=== PATIENT | female | born 1990 | race Caucasian/White ===

== ENCOUNTER 2017-02-17 06:13 | Inpatient (IN) | payer OTHER ==
[2017-02-17] MEDS ORDERED: MORPHINE IV ONE (06:41)
[2017-02-17] MEDS ORDERED: ZOFRAN IV ONE (06:42)
--- NOTE | 2017-02-17 06:46 | Emergency Department Report ---
ED Female HPI - General Stated complaint: ABD PAIN Time Seen by Provider: 02/17/17 06:40 Source: patient (parts interpreter used) - History of Present Illness Initial comments: parts interpreter used at bedside. 26-year-old female 4 para 2 presenting to the emergency department complaining of pelvic pain. Onset started roughly 2 hours prior to ED arrival. Patient states pain is looking the pelvic area, intermittent, nonradiating, no worsening or relaxing factors. Patient states 2 weeks ago she was told she was having a missed at approximately 6 weeks gestation. She was told this at her doctors office. She was scheduled to have the removal of POC tomorrow however today she started having a mental abdominal cramping. Patient endorses mild vaginal bleeding. Patient denies passage of large clots. Patient denies: Fever/chills, chest pain , diarrhea. He admits to several episodes of emesis that were nonbloody none billious MD Complaint: pelvic pain -: Sudden, hour(s) (2) Location: suprapubic Radiation: non-radiating Severity: severe Severity scale (0 -10): 10 Quality: cramping Consistency: intermittent Improves with: none Worsens with: none Associated Symptoms: vaginal bleeding, abdominal pain, nausea/vomiting. denies : fever/chills, headaches, dysuria, hematuria, shortness of breath, syncope, weakness - Related Data Allergies Allergy/AdvReac Type Severity Reaction Status Date / Time No Known Allergies Allergy Unverified 02/17/17 07:20 ED Review of Systems ROS: Stated complaint: ABD PAIN Other details as noted in HPI Constitutional: denies: chills, fever Eyes: denies: eye pain, eye discharge, vision change ENT: denies: ear pain, throat pain Respiratory: denies: cough, shortness of breath, wheezing Cardiovascular: denies: chest pain, palpitations Endocrine: no symptoms reported Gastrointestinal: abdominal pain, nausea, vomiting. denies: diarrhea, constipation, hematemesis Genitourinary: denies: urgency, dysuria, discharge Musculoskeletal: denies: back pain, joint swelling, arthralgia Skin: denies: rash, lesions Neurological: denies: headache, weakness, paresthesias Psychiatric: denies: anxiety, depression Hematological/Lymphatic: denies: easy bleeding, easy bruising ED Physical Exam - General General appearance: alert, in no apparent distress - Head Head exam: Present: atraumatic, normocephalic - Eye Eye exam: Present: normal appearance - ENT ENT exam: Present: mucous membranes moist - Neck Neck exam: Present: normal inspection - Respiratory Respiratory exam: Present: normal lung sounds bilaterally. Absent: respiratory distress - Cardiovascular Cardiovascular Exam: Present: regular rate, normal rhythm. Absent: systolic murmur, diastolic murmur, rubs, gallop - GI/Abdominal GI/Abdominal exam: Present: tenderness (+ moderate tenderness in LLQ ), rebound (+ reboound ), normal bowel sounds. Absent: distended, rigid, diminished bowel sounds, hyperactive bowel sounds, hypoactive bowel sounds, pulsatile mass, hernia - External exam: Present: normal external exam Speculum exam: Present: vaginal bleeding (moderate amount of blood in vaginal vault ) Bi-manual exam: Present: adnexal tenderness (left ). Absent: adnexal mass, uterine enlargement - Extremities Exam Extremities exam: Present: normal inspection - Back Exam Back exam: Present: normal inspection - Neurological Exam Neurological exam: Present: alert, oriented X3 - Psychiatric Psychiatric exam: Present: normal affect, normal mood - Skin Skin exam: Present: warm, dry, intact, normal color. Absent: rash ED Course Vital Signs 02/17/17 02/17/17 02/17/17 06:35 06:42 07:35 Temperature 98.8 F Pulse Rate 60 Respiratory 18 18 16 Rate Blood Pressure 100/44 Blood Pressure 100/44 [Left] O2 Sat by Pulse 100 99 Oximetry 02/17/17 08:05 Temperature Pulse Rate Respiratory 16 Rate Blood Pressure Blood Pressure [Left] O2 Sat by Pulse Oximetry - Reevaluation(s) Reevaluation #1: 02/17/17 08:54 Dr. Santos of [employer] will come to the ER to evaluate the patient. Reevaluation #2: 02/17/17 09:18 Dr Santos at pt bedside, parts interpreter used to update pt on result ED Medical Decision Making - Lab Data Result diagrams: 02/17/17 06:55 02/17/17 06:55 - Radiology Data Radiology results: report reviewed, image reviewed Final impression: 1)Abnormal left adnexal mass, not excluded for an ectopic in the giving setting with no sonographic suggestion of a normal intrauterine gestation. 2. Moderate complex or hemorrhagic pelvic free fluid. [address] Lui ROSE - Medical Decision Making 26 yo female presenting to ED with left lower quadrant likely secondary to ecoptic pregnay. Pt has been informed of + trich, she is aware that her partner has be treated. She also agrees to surgery. Dr Santos will take pt to OR. parts interpreter used to relate information - Differential Diagnosis IUP, colitis, diverticulitis Critical Care Time: Yes Critical care attestation.: If time is entered above; I have spent that time in minutes in the direct care of this critically ill patient, excluding procedure time. Critical Care Time: 35 ED Disposition Clinical Impression: Ectopic , Pelvic pain, Trichomoniasis of vagina Disposition: OP ADMIT IP TO THIS HOSP Is pt being admited?: Yes Does the pt Need Aspirin: No Condition: Stable Referrals: PRIMARY CARE, [Primary Care Provider] - 3-5 Days
[2017-02-17 06:58] LABS: Bilirubin,Urine Negative (Negative); Blood,Urine Negative (Negative); Ketones,Urine Negative (Negative); Leukocyte Esterase,Urine Trace (Negative); Nitrite,Urine Negative (Negative); Protein,Urine <15 mg/dL mg/dL (Negative); Urobilinogen,Urine 0.2 mg/dL (<2.0)
[2017-02-17 07:17] LABS: Basophils % (Auto) 0.4 % (0.0-1.8); Eosinophils % (Auto) 2.1 % (0.0-4.3); Hematocrit 32.7 % (30.3-42.9); Mean Corpuscular HGB Conc 34 % (30-34); Mean Corpuscular Hemoglobin 29 pg (28-32); Mean Corpuscular Volume 86 fl (79-97); Platelet Count 246 K/mm3 (140-440); Red Blood Count 3.79 M/mm3 (3.65-5.03); Red Cell Distribution Width 14.2 % (13.2-15.2); White Blood Count 7.7 K/mm3 (4.5-11.0)
[2017-02-17 07:27] LABS: Alanine Aminotransferase 12 units/L (7-56); Albumin/Globulin Ratio 1.4 %; Alkaline Phosphatase 79 units/L (35-129); Anion Gap 13 mmol/L; Blood Urea Nitrogen 9 mg/dL (7-17); Calcium 8.7 mg/dL (8.4-10.2); Carbon Dioxide 28 mmol/L (22-30); Glucose 103 mg/dL (65-100); Sodium 138 mmol/L (137-145); Total Protein 6.9 g/dL (6.3-8.2)
[2017-02-17] MEDS ORDERED: NACL 0.9% 1000 ML 1,000 ML IV ONE (08:48)
--- NOTE | 2017-02-17 08:50 | Ultrasound Report ---
ULTRASOUND OB LESS THAN 14 WEEKS - TRANSABDOMINAL AND TRANSVAGINAL INDICATION: History of missed at 6 weeks on 02/10/2017. Serum beta-hCG 5,227 units. COMPARISON: None similar at this institution. FINDINGS: Transabdominal and transvaginal pelvic sonography performed in this patient with LMP of 12/15/2016 and estimated menstrual age of 9 weeks and 1 day. A 8.7 x 3.8 x 4.3 cm anteverted uterus demonstrates no intrauterine gestation. Endometrial thickness 0.9 cm toward the fundus, endovaginal image 5. Moderate complex/hemorrhagic pelvic free fluid. Right ovary is 2.9 x 2 x 1.7 cm. Paraovarian fluid also seen. Left ovary is 3.3 x 1.9 x 3.2 cm with a 1.6 cm intrinsic complex area/possible corpus luteum or hemorrhagic cyst. Additionally, a slightly heterogeneous, predominantly solid-appearing 5 x 2.8 x 4 cm left adnexal mass noted above the uterine fundus, endovaginal images 26-32, though not significantly hypervascular. CONCLUSION: 1. Abnormal left adnexal mass, not excluded for an ectopic in the given setting with no sonographic suggestion of a normal intrauterine gestation. 2. Moderate complex or hemorrhagic pelvic free fluid. 3. Physiologic right ovary. Please also correlate clinically, with serial serum beta-hCG values and/or followup sonogram, as warranted. I phoned the above results to Batool Moreno in the ER, 8:35 AM, 02/17/2017. Thank you for the opportunity to participate in this patient's care.
[2017-02-17] MEDS ORDERED: ROCEPHIN IM ONE (08:57)
[2017-02-17] MEDS ORDERED: XYLOCAINE 1% MPF 5 mL INFILTRATI ONE (08:57)
[2017-02-17] MEDS ORDERED: ZITHROMAX PO ONE (08:58)
[2017-02-17] MEDS ORDERED: DIPRIVAN 10 MG/ML IV ONE (09:50)
[2017-02-17] MEDS ORDERED: DILAUDID ONE (09:51)
[2017-02-17] MEDS ORDERED: DECADRON ONE (09:51)
[2017-02-17] MEDS ORDERED: ZOFRAN ONE (09:51)
[2017-02-17] MEDS ORDERED: XYLOCAINE MPF 2% ONE (09:51)
[2017-02-17] MEDS ORDERED: ZEMURON IV ONE (09:51)
[2017-02-17] MEDS ORDERED: FLAGYL 500 MG/100 ML 500 MG/100 ML BAG IV ONE (09:53)
[2017-02-17] MEDS: FLAGYL/NS 1000 MG-200 ML 1,000 MG in VIAFLEX EMPTY CONTAINER 0 ML IV SCH ×2 (10:03→23:14)
--- NOTE | 2017-02-17 10:04 | Admit Criteria Form ---
Admission Criteria Documentation: OBSTETRIC AND GYNECOLOGIC DISEASE GRG Clinical Indications for Admission to Inpatient Care (Place 'X' for any and all applicable criteria): Hospital admission is needed for appropriate care of the patient because of 1 or more of the following (1)(2)(3): [ ]I. Hemodynamic instability, as indicated by 1 or more of the following (1)( 2)(3)(4)(5): [ ]a) Vital signs or other findings not as expected for chronic patient condition or baseline [ ]b) Instability indicated by 1 or more of the following: [ ]i) Hypotension [ ]ii) Symptomatic tachycardia unresponsive to treatment (eg, analgesia, fluids, sedation as indicated) [ ]iii) Inadequate perfusion indicated by 1 or more of the following: [ ]A. Lactic acidosis (greater than 2 mmol/ L) [ ]B. New abnormal capillary refill ( greater than 3 seconds) [ ]C. Reduced urine output [ ]D. New altered mental status [ ]iv) Orthostatic vital sign changes unresponsive to treatment (eg, fluids) [ ]v) Multiple IV fluid boluses required to maintain adequate blood pressure or perfusion [ ]vi) IV inotropic or vasopressor medication required to maintain adequate blood pressure or perfusion [ ]II. Obstetric infection requiring hospitalization indicated by 1 or more of the following(13)(14): [ ]a) Chorioamnionitis [ ]b) Endometritis (except mild endometritis) [ ]c) Pelvic abscess [ ]d) Peritonitis [ ]e) Septic pelvic thrombophlebitis [ ]III. Amniotic fluid or pulmonary embolism(4)(5)(6) [X ]IV. Suspected peritonitis or ectopic requiring monitoring beyond scope of 24 hours or observation care(7)(8) [ ]V. compromise requiring hospitalization indicated by ALL of the following(9)(10): [ ]a) compromise indicated by 1 or more of the following(11): [ ]i) Abnormal heart rate monitoring [ ]ii) Abnormal contraction stress test [ ]iii) Abnormal biophysical profile [ ]iv) Abnormal Doppler flow in vessels (ie, Doppler velocimetry) (12) [ ]b) Persistence of compromise indicators during evaluation and observation monitoring [ ]. Ovarian hyperstimulation syndrome requiring hospitalization[A] indicated by ALL of the following(15): [ ]a) Recent ovarian stimulation with gonadotropins, or evidence on ultrasound of spontaneous emergence of large number of ovarian follicles [ ]b) Evidence of severe ovarian hyperstimulation syndrome indicated by 1 or more of the following: [ ]i) Abdominal pain unresponsive to oral therapy [ ]ii) Acute respiratory distress syndrome [ ]iii) Electrolyte imbalance ( eg, hyponatremia, hyperkalemia) [ ]iv) Elevated liver enzymes [ ]v) Evidence of thromboembolism [ ]vi) Hemoconcentration (hematocrit greater than 45 % (0.45)) [ ]vii) Inability to maintain oral intake adequate to prevent hemoconcentration [ ]viii) Marked hypotension from baseline (eg, SBP 20 mmHg below patients usual pressure) [ ]ix) Oliguria or anuria [ ]x) Ovarian torsion [ ]xi) Pleural or pericardial effusion on x-ray or echocardiogram [ ]xii) Rapid increase in serum creatinine to greater than 1.2 mg/dL (106 micromoles/L) or creatinine clearance less than 50 mL/min/1.73m2 (0.84 mL/ sec/1.73m2) [ ]xiii) Ruptured ovarian cyst with hemorrhage [ ]xiv) Severe abdominal pain or peritoneal signs [ ]xv) Tense ascites that cannot be managed with paracentesis in outpatient setting [ ]VII.Pelvic infection requiring hospitalization indicated by 1 or more of the following (16): [ ]a) Outpatient treatment has failed or is not appropriate (eg, inpatient monitoring required) [ ]b) Pelvic abscess [ ]c) Surgical emergency cannot be excluded (eg, rigid abdomen) [ ]d) Vomiting precluding outpatient and observation care management [ ]VIII. loss complications requiring inpatient medical treatment indicated by 1 or more of the following (4)(7)(9): [ ]a) Fever [ ]b) Peritonitis [ ]c) Sepsis []d) Severe abdominal pain [ ]IX. or patient requiring monitoring for severe heart failure, pulmonary disease, or other comorbid condition (eg, peripartum cardiomyopathy) (4)(17) [ ]X. patient with rupture of membranes requiring hospitalization indicated by ANY ONE of the following: [ ]a) Chorioamnionitis, cloudy amniotic fluid, or other evidence of infection [ ]b) compromise or other need for monitoring (11) [ ]c) Gestation longer than 23 weeks and ANY ONE of the following: [ ]i) Abnormal (noncephalic) presentation [ ]ii) Inadequate home environment (eg, home too far from hospital, unable to rapidly return to hospital) [ ]d) Temperature greater than 100.4 degrees F (38 degrees C)( oral) [ ]e) Threatened labor requiring monitoring beyond scope (eg, over 24 hours) of observation Care [ ] XI. complications, including severe lacerations, infections, or retained placenta (19) [ ] XII.Uterine bleeding with high-risk features indicated by ANY ONE of the following (4): [ ]a) Active major hemorrhage (eg, hemorrhage) [ ]b) Coagulopathy with active bleeding [ ]c) Gestational trophoblastic disease (eg, molar ) (20 ) [ ]d) (longer than 23 weeks) and ANY ONE of the following: [ ]i) Pain [ ]ii) Placental abruption, known or suspected [ ]iii) Placenta accrete, known or suspected(21) [ ]iv) Placenta previa, known or suspected [ ]v) Vasa previa [ ]e) Severe anemia [ ]XIII. Obstetric or Gynecologic Disease, condition or symptom for which ANY ONE of the following: [ ]a) Emergency and observation care have failed or are not considered appropriate ( Also use General Criteria: Observation Care Criteria as appropriate) [ ]b) Presence of a General Admission Criteria or Pediatric General Admission Criteria The original [facility] [employer] content created by [facility] has been revised. The portions of the content which have been revised are identified through the use of italic text or in bold, and [facility] has neither reviewed nor approved the modified material.All other unmodified content is copyright [facility]. Please see references footnoted in the original [facility] edition 2016 Admission Criteria Met: Yes
[2017-02-17] MEDS ORDERED: REGLAN IV NR (10:17)
[2017-02-17] MEDS ORDERED: VERSED IV NR ×2 (10:17→11:00)
[2017-02-17] MEDS ORDERED: PEPCID IV NR (10:17)
[2017-02-17] MEDS ORDERED: DILAUDID IV PRN ×2 (10:18→10:45)
[2017-02-17] MEDS ORDERED: ZOFRAN IV PRN ×3 (10:18→12:55)
--- NOTE | 2017-02-17 10:20 | Anesthesia Day of Surgery ---
Anesthesia Day of Surgery - Day of Surgery Patient Examined: Yes Patient H&P Reviewed: Yes Patient is NPO: Yes (last water @ 4AM)
--- NOTE | 2017-02-17 10:20 | Anesthesia Consultation ---
Anesthesia Consult and Med Hx Date of service: 02/17/17 - Airway Anesthetic Teeth Evaluation: Good ROM Head & Neck: Adequate Mental/Hyoid Distance: Adequate Mallampati Class: Class II Intubation Access Assessment: Probably Good - Pre-Operative Health Status ASA Pre-Surgery Classification: ASA2, Emergency Proposed Anesthetic Plan: General - Cardiovascular System Hx Hypertension: Yes
[2017-02-17] MEDS ORDERED: NACL 0.9% 1000 ML 1,000 ML IV SCH ×2 (11:00)
[2017-02-17] MEDS ORDERED: MARCAINE 0.5% INFILTRATI ONE (11:59)
[2017-02-17] MEDS ORDERED: NACL 0.9% 1000 ML 1,000 ML ONE (12:04)
[2017-02-17] MEDS ORDERED: MARCAINE 0.25% INFILTRATI ONE (12:13)
[2017-02-17] MEDS ORDERED: TORADOL IV PRN ×2 (12:55→13:20)
[2017-02-17] MEDS ORDERED: NARCAN 0.4 MG/1 ML IV PRN (13:09)
[2017-02-17] MEDS ORDERED: NORCO 5/325 PO PRN (13:09)
[2017-02-17] MEDS ORDERED: MORPHINE IV PRN (13:09)
[2017-02-17] MEDS ORDERED: PERCOCET 5/325 PO PRN (13:09)
[2017-02-17] MEDS ORDERED: REGLAN IV PRN (13:09)
[2017-02-17] MEDS ORDERED: TYLENOL PO PRN (13:09)
[2017-02-17] MEDS: DILAUDID IV PRN ×3 (13:10→23:17)
--- NOTE | 2017-02-17 13:20 | Post Anesthesia Evaluation ---
- Post Anesthesia Evaluation Patient Participated: Yes Airway Patent: Yes Stable Respiratory Function: Yes Nausea/Vomiting: No Temp > 96.8F: Yes Pain Manageable: Yes Adequeate Hydration: Yes Anesthesia Complications: No Block Receding Appropriately: Not Applicable Patient on Ventilator: No
[2017-02-17] MEDS ORDERED: LACTATED RINGERS 1,000 ML IV SCH (14:00)
[2017-02-17 14:16] LABS: Basophils % (Auto) 0.2 % (0.0-1.8); Eosinophils % (Auto) 0.1 % (0.0-4.3); Hematocrit 32.7 % (30.3-42.9); Hemoglobin 10.7 gm/dl (10.1-14.3); Mean Corpuscular HGB Conc 33 % (30-34); Mean Corpuscular Hemoglobin 29 pg (28-32); Mean Corpuscular Volume 88 fl (79-97); Platelet Count 253 K/mm3 (140-440); Red Blood Count 3.74 M/mm3 (3.65-5.03); Red Cell Distribution Width 14.5 % (13.2-15.2); White Blood Count 12.2 K/mm3 (4.5-11.0)
--- NOTE | 2017-02-17 17:12 | Operative Report ---
Operative Report Operative Report: PREOPERATIVE DIAGNOSES: 1. Pelvic pain.( left side) 2. Ectopic . POSTOPERATIVE DIAGNOSES: 1. Pelvic pain. 2. Ectopic . 3. Hemoperitoneum. PROCEDURES PERFORMED: 2. Laparoscopy. 3. Left salpingectomy. 4. Lysis of adhesions. 5. Evacuation of hemoperitoneum. ANESTHESIA: General endotracheal. ESTIMATED BLOOD LOSS: Scant from the operation, however, there was approximately 1 liters of clotted and old blood in the abdomen. SPECIMENS: Left fallopian tube COMPLICATIONS: None. FINDINGS: On bimanual exam, the patient has a small anteverted uterus, it is freely mobile. No adnexal masses, however, were appreciated on the bimanual exam. Laparoscopically, the patient had several omental adhesions to the vesicouterine peritoneum in the fundus of the uterus. There were also adhesions to the left fallopian tube and t. There was a copious amount of blood in the abdomen approximately 1 liters of clotted and unclotted blood.. There was an apparent rupture and bleeding ectopic in the isthmus portion of the left fallopian tube. PROCEDURE: After an informed consent was obtained, the patient was taken to the operating room and the general anesthetic was administered. She was then positioned in the dorsal lithotomy position and prepped and draped in the normal sterile fashion. Once the anesthetic was found to be adequate, a bimanual exam was performed under anesthetic. A weighted speculum was then placed in the vagina. The interior wall of vagina elevated with the uterine sound and the anterior lip of the cervix was grasped with the vulsellum tenaculum. . At this point, the uterine manipulator was placed in the cervix and attached to the anterior cervix and vulsellum tenaculum and weighted speculum were removed. Next, attention was then turned to the abdomen. The surgeons removed the dirty gloves in the previous portion of the case. Next, a 2 cm incision was made immediately inferior to umbilicus. The superior aspect of the umbilicus was grasped with a towel clamp and a Veress needle was inserted through this incision. Next, a syringe was used to inject normal saline into the Veress needle. The normal saline was seen to drop freely, so a Veress needle was connected to the CO2 gas which was started at its lowest setting. The gas was seen to flow freely with normal resistance, so the CO2 gas was advanced to a higher setting. The abdomen was insufflated to an adequate distension. Once an adequate distention was reached, the CO2 gas was disconnected. The Veress needle was removed and a size #11 step trocar was placed. The introducer was removed and the trocar was connected to the CO2 gas and a camera was inserted. Next, a 1 cm incision was made in the midline approximately two fingerbreadths below the pubic symphysis after transilluminating with the camera. A Veress needle and a step sheath were inserted through this incision. Next, the Veress needle was removed and a size # 5 trocar was inserted under direct visualization. Next a size #5 port was placed approximately five fingerbreadths to the left of the umbilicus in a similar fashion. A size #12 port was placed in a similar fashion approximately six fingerbreadths to the right of the umbilicus and also under direct visualization. The laparoscopic dissector was inserted through the suprapubic port and this was used to dissect the omental adhesions bluntly from the vesicouterine peritoneum and the bilateral fallopian tubes. Next, the Ralph suction reception centre manager was used to copiously irrigate the abdomen. Approximate total of 3 liters of irrigation was used and the majority of all blood clots and free blood was removed from the abdomen. Once the majority of blood was cleaned from the abdomen, the ectopic was easily identified and the end of the fallopian tube was grasped with the grasper from the left upper quadrant and the LigaSure device was then inserted through the right upper quadrant with # 12 port. Three bites with the LigaSure device were used to transect the mesosalpinx inferior to the fallopian tube and then transect the fallopian tube proximal to the ectopic . An EndoCatch bag was then placed to the size #12 port and this was used to remove the right fallopian tube and ectopic . This was then sent to the pathology. Next, the right mesosalpinx and remains of the fallopian tube were examined again and they were seemed to be hemostatic. The abdomen was further irrigated. The liver was examined and appeared to be within normal limits. At this point, the two size #5 ports and a size #12 port were removed under direct visualization. The camera was then removed. The CO2 gas was disconnected and the abdomen was desufflated. The introducer was then replaced in a size #11 port and the whole port and introducer was removed as a single unit. All laparoscopic incisions were closed with a #4-0 undyed Vicryl in a subcuticular interrupted fashion. They were then steri-stripped and bandaged appropriately. At the end of the procedure, the uterine manipulator was removed from the cervix and the patient was taken to Recovery in stable condition. The patient tolerated the procedure well. Sponge, lap, and needle counts were correct x2. She was discharged home with a postoperative hemoglobin of 8.9. She was given iron 325 mg to be taken twice a day for five months and Darvocet-N 100 mg to be taken every four to six hours for pain. She will follow up within a week in the OB resident clinic.
--- NOTE | 2017-02-18 06:43 | Progress Note ---
Assessment and Plan A/P POD#1 s/p ex l/s left salpingectomy tolerating regular diet pain well controlled ambulating well await CBC ( if nl d/c home) VSS Subjective - Subjective Date of service: 02/18/17 Principal diagnosis: s/p exploratory salpingectomy of ectopic ( left) Patient reports: appetite normal, voiding normally, pain well controlled, flatus , ambulating normally Objective - Vital Signs Latest vital signs: Vital Signs Temp Pulse Pulse Resp BP BP Pulse Ox 02/18/17 04:28 98.4 F 60 16 100/50 02/17/17 19:30 98.2 F 67 16 101/59 02/17/17 16:35 98.6 F 53 L 17 83/45 02/17/17 14:10 97.6 F 02/17/17 14:00 60 14 97/45 96 02/17/17 13:45 60 12 99/60 95 02/17/17 13:30 66 12 97/62 98 02/17/17 13:15 57 L 14 103/58 100 Intake and Output 02/17/17 02/17/17 02/18/17 14:59 22:59 06:59 Output Total 110 400 Balance -110 -400 Output: Urine 110 400 Indwelling Catheter 400 Other: Total, Output Amount 400 - Exam Breasts: Present: deferred Cardiovascular: Present: Regular rate, Normal S1 Lungs: Present: Clear to auscultation, Normal air movement Abdomen: Present: normal appearance, soft, normal bowel sounds. Absent: distention, tenderness, guarding Vulva: both: normal Uterus: Present: normal, firm. Absent: bogginess, tenderness Extremities: Present: normal Deep Tendon Reflex Grade: Normal +2 Incision: Present: normal, dry, intact - Labs Labs: Abnormal lab results 02/17/17 Range/Units 14:12 WBC 12.2 H (4.5-11.0) K/mm3 Lymph % (Auto) 8.0 L (13.4-35.0) % Lymph # 1.0 L (1.2-5.4) K/mm3 Seg Neutrophils % 89.8 H (40.0-70.0) % Seg Neutrophils # 11.0 H (1.8-7.7) K/mm3
[2017-02-18 07:22] LABS: Hematocrit 32.1 % (30.3-42.9); Hemoglobin 10.4 gm/dl (10.1-14.3)
--- NOTE | 2017-02-18 09:06 | Discharge Summary ---
Providers - Providers Date of Admission: 02/17/17 13:10 Date of discharge: 02/18/17 Attending physician: JODI TEAGUE MD Primary care physician: [employer] Hospitalization Reason for admission: other (s/p ectopic l salpingectomy ) Procedure: other (L/S salpingectomy) Episiotomy: none Laceration: none Incision: normal, dry, intact Condition at discharge: Stable Disposition: DC- TO HOME OR SELFCARE Plan - Discharge Medications Prescriptions: Ibuprofen [Motrin] 600 mg PO Q8H PRN #30 tablet PRN Reason: Pain oxyCODONE /ACETAMINOPHEN [Percocet 5/325] 1 tab PO Q6HR PRN #30 tablet PRN Reason: Pain - Provider Discharge Summary Activity: routine, no sex for 6 weeks, no heavy lifting 4 weeks, no strenuous exercise Diet: routine Additional instructions: [] Smoking cessation referral if applicable(refer to patient education folder for contact #) [] Refer to [facility] Booklet Call your doctor immediately for: * Fever > 100.5 * Heavy vaginal bleeding ( >1 pad per hour) * Severe persistent headache * Shortness of breath * Reddened, hot, painful area to leg or breast * Drainage or odor from incision. * Keep incision clean and dry at all times and follow doctor's instructions regarding bathing/showering - Follow up plan Follow up: PRIMARY CARE, [Primary Care Provider] - 14 Days Forms: [facility] Discharge Summary
--- NOTE | 2017-02-18 10:26 | Progress Note ---
Subjective Date of service: 02/18/17 Principal diagnosis: s/p exploratory salpingectomy of ectopic ( left) Interval history: Patient is doing well. No anesthetic related complaints. Objective - Constitutional Vitals: Vital Signs - 12hr 02/18/17 02/18/17 02/18/17 04:28 07:30 07:36 Temperature 98.4 F 98.2 F Pulse Rate [ 60 58 L Right Radial] Respiratory 16 18 16 Rate Blood Pressure 100/50 94/66 [Left Arm] O2 Sat by Pulse 100 Oximetry - Labs CBC & Chem 7: 02/18/17 05:35 02/17/17 06:55 Labs: Abnormal lab results 02/17/17 Range/Units 14:12 WBC 12.2 H (4.5-11.0) K/mm3 Lymph % (Auto) 8.0 L (13.4-35.0) % Lymph # 1.0 L (1.2-5.4) K/mm3 Seg Neutrophils % 89.8 H (40.0-70.0) % Seg Neutrophils # 11.0 H (1.8-7.7) K/mm3
[2017-02-18 13:20] VITALS: BP 90/50
== END 2017-02-18 14:00 | disposition home or self-care (01) | DRG 777 ==
LOC: ED 06:13 → OR 10:45 → OB 13:10
PROVIDERS: ADMIT Obstetrics & Gynecology; ATTEND Obstetrics & Gynecology
PROC: 0UT5FZZ Resection of Right Fallopian Tube, Via Natural or Artificial Opening With Percutaneous Endoscopic Assistance (ICD-10-PCS; principal; 2017-02-17)
PROC: 10T24ZZ Resection of Products of Conception, Ectopic, Percutaneous Endoscopic Approach (ICD-10-PCS; 2017-02-17)
PROC: 0U954ZZ Drainage of Right Fallopian Tube, Percutaneous Endoscopic Approach (ICD-10-PCS; 2017-02-17)
DX: O00.10 Tubal pregnancy without intrauterine pregnancy (principal); K66.1 Hemoperitoneum; O08.89 Other complications following an ectopic and molar pregnancy
CPT/HCPCS: 36415; 76801; 76817; 80053; 81001; 84702; 85014; 85018; 85025; 86850; 86900; 86901; 87210; 87591; 88305; 96372; 96374; 96375; J0696; J1100; J1170; J1885; J2250; J2270; J2405; J2704; J2765; J7030; J7120

== ENCOUNTER 2019-01-16 10:57 | Emergency (ER) | payer SELFPAY ==
--- NOTE | 2019-01-16 11:14 | Emergency Department Report ---
Blank Doc - Documentation Documentation: This is a 28-year-old female that presents with lower back pain. Denies any va ginal bleeding. Stated is 5 weeks . Hx of ectopic. This initial assessment/diagnostic orders/clinical plan/treatment(s) is/are subject to change based on patient's health status, clinical progression and re- assessment by fellow clinical providers in the ED. Further treatment and workup at subsequent clinical providers discretion. Patient/guardians urged not to elope from the ED as their condition may be serious if not clinically assessed and managed. Initial orders include: 1- Patient sent to [facility] for further evaluation and treatment 2- labs 3- UA 4- US OB
[2019-01-16 11:21] VITALS: BP 103/39
[2019-01-16 11:45] LABS: Bilirubin,Urine NEG (Negative); Blood,Urine NEG (Negative); Color,Urine Straw (Yellow); Protein,Urine <15 mg/dL mg/dL (Negative); Urobilinogen,Urine < 2.0 mg/dL (<2.0)
--- NOTE | 2019-01-16 12:12 | Emergency Department Report ---
ED HPI - General Chief complaint: Back Pain/Injury Stated complaint: 5WKS /BACK PAIN Time Seen by Provider: 01/16/19 11:13 Source: patient Mode of arrival: Ambulatory Limitations: Language Barrier - History of Present Illness Initial comments: This is a 28-year-old female who presents to the emergency room with back pain or vaginal discharge. Patient reports she had a confirmed test this morning and at her clinic. Last initial period was 12/08/2018, A2, one miscarriage and one ectopic. Patient is concerned of possible ectopic because symptoms were similar S today. Patient denies vaginal bleeding, pelvic pain, nausea, vomiting, urinary frequency, urgency, or dysuria. MD Complaint: vaginal discharge, other (back pain) Location: flank (left) Radiation: none Severity: mild Severity scale (0 -10): 3 Quality: cramping Consistency: intermittent Improves with: none Worsens with: none Associated symptoms: denies other symptoms Vaginal bleeding: none :: Yes Number of weeks : 5 OB History - Current : no complications OB History - Previous Pregnancies: miscarriage, other (ectopic) Last menstrual period: 12/08/18 Pre-wes care: none - Related Data : 5 Para: 2 Ab: 1 (one miscarriage and one ectopic) Previous Rx's Medication Instructions Recorded Last Taken Type Ibuprofen [Motrin] 600 mg PO Q8H PRN #30 tablet 02/18/17 Unknown Rx oxyCODONE /ACETAMINOPHEN [Percocet 1 tab PO Q6HR PRN #30 tablet 02/18/17 Unknown Rx 5/325] 21/Iron Fu/Folic Acid 1 each PO DAILY #30 tablet 01/16/19 Unknown Rx [ Complete Caplet] Allergies Allergy/AdvReac Type Severity Reaction Status Date / Time No Known Allergies Allergy Unverified 02/17/17 07:20 ED Review of Systems ROS: Stated complaint: 5WKS /BACK PAIN Other details as noted in HPI Constitutional: denies: chills, fever Respiratory: denies: cough, shortness of breath, wheezing Cardiovascular: denies: chest pain, palpitations Gastrointestinal: denies: abdominal pain, nausea, diarrhea Genitourinary: discharge. denies: urgency, dysuria Musculoskeletal: back pain (left flank). denies: joint swelling, arthralgia Skin: denies: rash, lesions Neurological: denies: headache, weakness, paresthesias Psychiatric: denies: anxiety, depression ED Past Medical Hx - Past Medical History Previous Medical History?: Yes Hx Hypertension: Yes Hx Congestive Heart Failure: No Hx Diabetes: No Hx Asthma: No Hx COPD: No - Surgical History Past Surgical History?: Yes Additional Surgical History: Ectopic - Social History Smoking Status: Never Smoker Substance Use Type: Alcohol - Medications Home Medications: Home Medications Medication Instructions Recorded Confirmed Last Taken Type Ibuprofen [Motrin] 600 mg PO Q8H PRN #30 tablet 02/18/17 Unknown Rx oxyCODONE /ACETAMINOPHEN [Percocet 1 tab PO Q6HR PRN #30 tablet 02/18/17 Unknown Rx 5/325] 21/Iron Fu/Folic Acid 1 each PO DAILY #30 tablet 01/16/19 Unknown Rx [ Complete Caplet] ED Physical Exam - General Limitations: No Limitations General appearance: alert, in no apparent distress - Respiratory Respiratory exam: Present: normal lung sounds bilaterally. Absent: respiratory distress - Cardiovascular Cardiovascular Exam: Present: regular rate, normal rhythm. Absent: systolic murmur, diastolic murmur, rubs, gallop - GI/Abdominal GI/Abdominal exam: Present: soft, normal bowel sounds. Absent: distended, tenderness, guarding, rebound, rigid - Back Exam Back exam: Absent: CVA tenderness (R), CVA tenderness (L) - Neurological Exam Neurological exam: Present: alert, oriented X3, normal gait - Psychiatric Psychiatric exam: Present: normal affect, normal mood - Skin Skin exam: Present: warm, dry, intact, normal color. Absent: rash ED Course Vital Signs 01/16/19 11:13 Temperature 98.2 F Pulse Rate 55 L Respiratory 20 Rate Blood Pressure 103/39 O2 Sat by Pulse 100 Oximetry ED Medical Decision Making - Radiology Data Radiology results: report reviewed ULTRASOUND OB LESS THAN 14 WEEKS FETUS ULTRASOUND OB TRANSVAGINAL History: Back pain, history of ectopic . Findings: Transabdominal and transvaginal ultrasound imaging was performed. The uterus measures 8.7 x 4.1 x 5.2 cm. No uterine mass is identified. The endometrial stripe measures 1.5 cm in thickness. No intrauterine is identified at this time. The cervix is unremarkable. The right ovary measures 3.2 x 2.2 x 2.8 cm. A complex area in the right ovary measures 2.6 x 1.8 cm. This could represent a corpus luteum cyst. No obvious ectopic is demonstrated on ultrasound. The left ovary is unremarkable measuring 1.2 x 1.8 x 2.2 cm. No pelvic fluid collection. Impression: No intrauterine is visualized at this time. Complex area in the right ovary which could represent a corpus luteum cyst. Close interval followup and correlation with beta hCG levels is recommended. - Medical Decision Making This is a 28 y.o. female presents with back pain during . Patient was examined by me. Vitals are normal and patient is in no acute distress. Obtained a urinalysis, CBC, hCG quant, and OB ultrasound. Quant 42.66 and all other labs unremarkable. Ultrasound, No intrauterine is visualized at this time. Complex area in the right ovary which could represent a corpus luteum cyst. Close interval followup and correlation with beta hCG levels is recommended. Patient instructed to have repeat hCG quant in 48 hours with BIOPROCESSING MANUFACTURING TECHNICIAN or in ER to r/o ectopic . Patient discharged home in stable condition. Critical care attestation.: If time is entered above; I have spent that time in minutes in the direct care of this critically ill patient, excluding procedure time. ED Disposition Clinical Impression: Threatened miscarriage in early Back pain affecting Qualifiers: Trimester: first trimester Qualified Code(s): O99.89 - Other specified diseases and conditions complicating , childbirth and the puerperium; M54.9 - Dorsalgia, unspecified Disposition: DC-01 TO HOME OR SELFCARE Is pt being admited?: No Does the pt Need Aspirin: No Condition: Stable Instructions: Threatened Miscarriage (ED) Additional Instructions: Have repeat hCG quant labs in 48 hours with BIOPROCESSING MANUFACTURING TECHNICIAN or ER. Heel were hCG quantitative on this visit was 42.66. Remain on bed rest. Follow up with BIOPROCESSING MANUFACTURING TECHNICIAN in 24-48 hours. Return to ER if increased vaginal bleeding, abdominal pain, and low back pain. Prescriptions: 21/Iron Fu/Folic Acid [ Complete Caplet] 1 each PO DAILY #30 tablet Referrals: BENJAMIN KUMARI MD [Primary Care Provider] - 3-5 Days [facility] [Provider [facility]] - 3-5 Days [facility] [Provider Group] - 3-5 Days Time of Disposition: 15:07
--- NOTE | 2019-01-16 14:10 | Ultrasound Report ---
ULTRASOUND OB LESS THAN 14 WEEKS FETUS ULTRASOUND OB TRANSVAGINAL History: Back pain, history of ectopic . Findings: Transabdominal and transvaginal ultrasound imaging was performed. The uterus measures 8.7 x 4.1 x 5.2 cm. No uterine mass is identified. The endometrial stripe measures 1.5 cm in thickness. No intrauterine is identified at this time. The cervix is unremarkable. The right ovary measures 3.2 x 2.2 x 2.8 cm. A complex area in the right ovary measures 2.6 x 1.8 cm. This could represent a corpus luteum cyst. No obvious ectopic is demonstrated on ultrasound. The left ovary is unremarkable measuring 1.2 x 1.8 x 2.2 cm. No pelvic fluid collection. Impression: No intrauterine is visualized at this time. Complex area in the right ovary which could represent a corpus luteum cyst. Close interval followup and correlation with beta hCG levels is recommended.
== END 2019-01-16 15:19 | disposition home or self-care (01) ==
LOC: ED 10:57
DX: O20.0 Threatened abortion (principal); O16.1 Unspecified maternal hypertension, first trimester; Z3A.01 Less than 8 weeks gestation of pregnancy
CPT/HCPCS: 36415; 76801; 76817; 81001; 84702; 87210; 87591

== ENCOUNTER 2019-01-22 08:31 | Emergency (ER) | payer SELFPAY ==
[2019-01-22 08:59] LABS: Basophils % (Auto) 0.4 % (0.0-1.8); Eosinophils # (Auto) 0.2 K/mm3 (0.0-0.4); Eosinophils % (Auto) 2.1 % (0.0-4.3); Hemoglobin 12.9 gm/dl (10.1-14.3); Lymphocytes # (Auto) 2.4 K/mm3 (1.2-5.4); Lymphocytes % (Auto) 31.4 % (13.4-35.0); Mean Corpuscular HGB Conc 34 % (30-34); Mean Corpuscular Volume 86 fl (79-97); Monocytes # (Auto) 0.6 K/mm3 (0.0-0.8); Monocytes % (Auto) 8.2 % (0.0-7.3); Platelet Count 271 K/mm3 (140-440); Red Blood Count 4.43 M/mm3 (3.65-5.03); Red Cell Distribution Width 14.1 % (13.2-15.2)
[2019-01-22 09:23] LABS: Mucus,Urine FEW /HPF
[2019-01-22 09:24] LABS: Bilirubin,Urine NEG (Negative); Blood,Urine LG (Negative); Color,Urine Straw (Yellow); Protein,Urine <15 mg/dL mg/dL (Negative); Urobilinogen,Urine < 2.0 mg/dL (<2.0)
--- NOTE | 2019-01-22 09:41 | Emergency Department Report ---
HPI - General Chief Complaint: Vaginal Bleeding Time Seen by Provider: 01/22/19 09:24 - HPI HPI: Patient is a 28-year-old female comes to the ER complaining of vaginal bleeding during . She has been seen here in the ER for this already. She initially told me that she did not NEWS OPERATIONS MANAGER. However, later in the visit she states she had seen an NEWS OPERATIONS MANAGER and that she just wanted to make sure the second opinion that there is nothing in her tubes because of a previous tubal. Patient is 5 para 2 miscarriages 1 and AB 1. Patient denies abdominal pain and states that she only has vaginal bleeding in the a.m. Denies vaginal discharge. ED Past Medical Hx - Past Medical History Previous Medical History?: No Hx Hypertension: Yes Hx Congestive Heart Failure: No Hx Diabetes: No Hx Asthma: No Hx COPD: No - Surgical History Past Surgical History?: Yes Additional Surgical History: Ectopic - Social History Smoking Status: Current Every Day Smoker Substance Use Type: Alcohol ED Review of Systems ROS: Stated complaint: BLEEDING Other details as noted in HPI Comment: All other systems reviewed and negative Physical Exam - Physical Exam Vital Signs: Vital Signs 01/22/19 08:34 Temperature 98.1 F Pulse Rate 65 Respiratory 16 Rate Blood Pressure 120/64 O2 Sat by Pulse 100 Oximetry Physical Exam: WDWN patient in NAD VS per RN flow sheet Alert and oriented to person, place and time. S1-S2. No S3 or S4. No systolic or diastolic murmur. No JVD. No pitting edema. Lungs clear to auscultation bilaterally anteriorly and posteriorly. Abdomen soft nontender bowel sounds x4 Moves all extremities well. Mood and affect appropriate. ED Course Vital Signs 01/22/19 08:34 Temperature 98.1 F Pulse Rate 65 Respiratory 16 Rate Blood Pressure 120/64 O2 Sat by Pulse 100 Oximetry ED Medical Decision Making - Lab Data Result diagrams: 01/22/19 08:41 - Radiology Data Radiology results: report reviewed, image reviewed - Medical Decision Making lmp 5-4 [id number] Vital Signs 01/22/19 08:34 Temperature 98.1 F Pulse Rate 65 Respiratory 16 Rate Blood Pressure 120/64 O2 Sat by Pulse 100 Oximetry Lab Results 01/22/19 01/22/19 01/22/19 Range/Units 08:41 08:41 08:47 WBC 7.7 (4.5-11.0) K/mm3 RBC 4.43 (3.65-5.03) M/mm3 Hgb 12.9 (10.1-14.3) gm/dl Hct 38.0 (30.3-42.9) % MCV 86 (79-97) fl MCH 29 (28-32) pg MCHC 34 (30-34) % RDW 14.1 (13.2-15.2) % Plt Count 271 (140-440) K/mm3 Lymph % (Auto) 31.4 (13.4-35.0) % [place] % (Auto) 8.2 H (0.0-7.3) % Eos % (Auto) 2.1 (0.0-4.3) % Baso % (Auto) 0.4 (0.0-1.8) % Lymph # 2.4 (1.2-5.4) K/mm3 [place] # 0.6 (0.0-0.8) K/mm3 Eos # 0.2 (0.0-0.4) K/mm3 Baso # 0.0 (0.0-0.1) K/mm3 Seg Neutrophils % 57.9 (40.0-70.0) % Seg Neutrophils # 4.5 (1.8-7.7) K/mm3 HCG, Quant 14.55 H (0-4) mIU/mL Urine Color (Yellow) Urine Turbidity (Clear) Urine pH (5.0-7.0) Ur Specific [place] (1.003-1.030) Urine Protein (Negative) mg/dL Urine Glucose (UA) (Negative) mg/dL Urine Ketones (Negative) mg/dL Urine Blood (Negative) Urine Nitrite (Negative) Ur Reducing Substances Urine Bilirubin (Negative) Urine Ictotest Urine Urobilinogen (<2.0) mg/dL Ur Leukocyte Esterase (Negative) Urine WBC (Auto) (0.0-6.0) /HPF Urine RBC (Auto) (0.0-6.0) /HPF U Epithel Cells (Auto) (0-13.0) /HPF Urine Mucus /HPF Blood Type O POSITIVE Ord Rhogam Gestat Weeks Rh pos WEEKS 01/22/19 Range/Units 08:58 WBC (4.5-11.0) K/mm3 RBC (3.65-5.03) M/mm3 Hgb (10.1-14.3) gm/dl Hct (30.3-42.9) % MCV (79-97) fl MCH (28-32) pg MCHC (30-34) % RDW (13.2-15.2) % Plt Count (140-440) K/mm3 Lymph % (Auto) (13.4-35.0) % [place] % (Auto) (0.0-7.3) % Eos % (Auto) (0.0-4.3) % Baso % (Auto) (0.0-1.8) % Lymph # (1.2-5.4) K/mm3 [place] # (0.0-0.8) K/mm3 Eos # (0.0-0.4) K/mm3 Baso # (0.0-0.1) K/mm3 Seg Neutrophils % (40.0-70.0) % Seg Neutrophils # (1.8-7.7) K/mm3 HCG, Quant (0-4) mIU/mL Urine Color Straw (Yellow) Urine Turbidity Clear (Clear) Urine pH 7.0 (5.0-7.0) Ur Specific [place] 1.008 (1.003-1.030) Urine Protein <15 mg/dl (Negative) mg/dL Urine Glucose (UA) Neg (Negative) mg/dL Urine Ketones Neg (Negative) mg/dL Urine Blood Lg (Negative) Urine Nitrite Neg (Negative) Ur Reducing Substances Not Reportable Urine Bilirubin Neg (Negative) Urine Ictotest Not Reportable Urine Urobilinogen < 2.0 (<2.0) mg/dL Ur Leukocyte Esterase Neg (Negative) Urine WBC (Auto) 1.0 (0.0-6.0) /HPF Urine RBC (Auto) 1.0 (0.0-6.0) /HPF U Epithel Cells (Auto) 1.0 (0-13.0) /HPF Urine Mucus Few /HPF Blood Type Ord Rhogam Gestat Weeks WEEKS us noted hcg trending down Rh pos tree trimmer used to educate pt on findings today. She is being dc home with obgyn follow up. on dc VSS. no pain. no bleeding. Critical care attestation.: If time is entered above; I have spent that time in minutes in the direct care of this critically ill patient, excluding procedure time. ED Disposition Clinical Impression: Miscarriage Disposition: DC-01 TO HOME OR SELFCARE Is pt being admited?: No Does the pt Need Aspirin: No Condition: Stable Instructions: Spontaneous Miscarriage (ED) Additional Instructions: DIET TOLERATED MEDS ORDERED TODAY IN ER FOLLOW INSTRUCTIONS ON THE BOTTLE FOLLOW UP PCP WITHIN 48 HOURS TO ENSURE YOU ARE GETTING BETTER ACTIVITY TOLERATED MOTRIN OR TYLENOL FOR PAIN OR FEVER RETURN TO THE ER FOR WORSENING SYMPTOMS NOT RELIEVED BY YOUR MEDICATIONS. follow up with the obgy!!! you need to see this week. Tell them you were here in the ER referral below Referrals: JEREMY ARANDA MD [Staff Physician] - 3-5 Days Time of Disposition: 11:20 Print Language: BELARUSIAN
--- NOTE | 2019-01-22 11:14 | Ultrasound Report ---
ULTRASOUND OB LESS THAN 14 WEEKS FETUS ULTRASOUND OB TRANSVAGINAL History: Vaginal bleeding Findings: Transabdominal and transvaginal ultrasound images were obtained. The uterus is anteverted and measures 8 x 5 x 5 cm. The endometrial stripe measures 6 mm. No intrauterine is identified. The right ovary measures 3.2 x 1.8 x 1.7 cm. A 0.8 cm complex cyst in the right ovary may represent a corpus luteum cyst. The left ovary is unremarkable measuring 1.7 x 1.0 x 1.4 cm. No pelvic fluid collection. IMPRESSION: No intrauterine is visualized. The endometrium measures 6 mm.
[2019-01-22 11:31] VITALS: BP 122/71
== END 2019-01-22 11:31 | disposition home or self-care (01) ==
LOC: ED 08:31
DX: O03.9 Complete or unspecified spontaneous abortion without complication (principal); O16.1 Unspecified maternal hypertension, first trimester; O99.331 Smoking (tobacco) complicating pregnancy, first trimester; F17.200 Nicotine dependence, unspecified, uncomplicated; Z3A.01 Less than 8 weeks gestation of pregnancy
CPT/HCPCS: 36415; 76801; 76817; 81001; 84702; 85025; 86900; 86901

== ENCOUNTER 2022-04-15 06:41 | Emergency (ER) | payer SELFPAY ==
[2022-04-15] MEDS ORDERED: predniSONE 20 MG TAB PO ONE (10:30)
[2022-04-15] MEDS ORDERED: KETOROLAC 10 MG TAB PO ONE (10:30)
[2022-04-15] MEDS ORDERED: ACETAMINOPHEN W/CODEINE 300-30 MG TAB PO ONE (10:30)
--- NOTE | 2022-04-15 10:49 | XRay Report ---
CHEST 2 VIEWS INDICATION / CLINICAL INFORMATION: chest pain. COMPARISON: 12/09/2021 FINDINGS: SUPPORT DEVICES: None. HEART / MEDIASTINUM: No significant abnormality. LUNGS / PLEURA: No significant pulmonary or pleural abnormality. No pneumothorax. ADDITIONAL FINDINGS: No significant additional findings. IMPRESSION: 1. No acute findings. Signer Name: Burton Gambino Jr, MD Signed: 04/15/2022 10:45 AM Workstation Name: [id number]
--- NOTE | 2022-04-15 10:58 | Electrocardiograph Report ---
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
--- NOTE | 2022-04-15 11:33 | Emergency Department Report ---
ED General Adult HPI - General Chief complaint: Chest Pain Stated complaint: CHEST PAIN/PAIN IN LEFT SHOULDER AND LUNGS Time Seen by Provider: 04/15/22 09:58 Source: patient Mode of arrival: Ambulatory Limitations: No Limitations - History of Present Illness Initial comments: 31-year-old female with a past medical history of asthma presents to the emergency department for evaluation of 2-day history of chest pain when she coughs or moves along with several month history of bilateral shoulder pain. She denies any injury or trauma to shoulders. She states that chest pain is worse when she takes a deep breath and she states pain is 10 out of 10. She denies fever, shortness of breath, nausea, vomiting, dizziness, and diaphoresis. She states that she has not taken any medications for symptoms. MD Complaint: Chest pain and bilateral shoulder pain -: Gradual, days(s) (2-3) Location: chest, upper extremity Radiation: non-radiation Severity scale (0 -10): 10 Quality: aching Consistency: constant Worsens with: movement, other (Cough) Associated Symptoms: chest pain. denies: fever/chills, headaches, loss of ap petite, nausea/vomiting, shortness of breath, syncope, weakness Treatments Prior to Arrival: none - Related Data Previous Rx's Medication Instructions Recorded Last Taken Type Cyclobenzaprine [Flexeril] 10 mg PO TID PRN #30 tab 04/15/22 Unknown Rx Naproxen 500 mg PO BID 7 Days #14 tab 04/15/22 Unknown Rx methylPREDNISolone [Medrol 4MG 4 mg PO DAILY #1 pack 04/15/22 Unknown Rx DOSEPAK (21 tabs)] Allergies Allergy/AdvReac Type Severity Reaction Status Date / Time No Known Allergies Allergy Unverified 02/17/17 07:20 ED Review of Systems ROS: Stated complaint: CHEST PAIN/PAIN IN LEFT SHOULDER AND LUNGS Other details as noted in HPI Comment: All other systems reviewed and negative Constitutional: denies: chills, fever, weakness ENT: denies: dental pain, congestion Respiratory: denies: shortness of breath, SOB with exertion, SOB at rest, stridor, wheezing Cardiovascular: chest pain. denies: palpitations, dyspnea on exertion Gastrointestinal: denies: abdominal pain, nausea, vomiting Genitourinary: denies: urgency Musculoskeletal: denies: back pain Neurological: denies: headache, weakness ED Past Medical Hx - Past Medical History Previous Medical History?: Yes Hx Hypertension: Yes Hx Congestive Heart Failure: No Hx Diabetes: No Hx Asthma: Yes Hx COPD: No - Surgical History Past Surgical History?: No Additional Surgical History: Ectopic - Social History Smoking Status: Unknown if ever smoked Substance Use Type: None - Medications Home Medications: Home Medications Medication Instructions Recorded Confirmed Last Taken Type Cyclobenzaprine [Flexeril] 10 mg PO TID PRN #30 tab 04/15/22 Unknown Rx Naproxen 500 mg PO BID 7 Days #14 tab 04/15/22 Unknown Rx methylPREDNISolone [Medrol 4MG 4 mg PO DAILY #1 pack 04/15/22 Unknown Rx DOSEPAK (21 tabs)] ED Physical Exam - General Limitations: No Limitations General appearance: alert, in no apparent distress - Head Head exam: Present: atraumatic, normocephalic - Eye Eye exam: Present: normal appearance. Absent: conjunctival injection - ENT ENT exam: Present: normal exam - Neck Neck exam: Present: normal inspection, full ROM. Absent: tenderness, lymphadenopathy - Respiratory Respiratory exam: Present: normal lung sounds bilaterally, chest wall tenderness. Absent: respiratory distress, wheezes, rales, rhonchi, stridor - Cardiovascular Cardiovascular Exam: Present: bradycardia, normal heart sounds - GI/Abdominal GI/Abdominal exam: Present: soft, normal bowel sounds. Absent: distended, tenderness, guarding, rebound, rigid - Extremities Exam Extremities exam: Present: normal inspection, normal capillary refill. Absent: pedal edema, joint swelling, calf tenderness - Expanded Upper Extremity Exam Left Shoulder Exam: Present: normal inspection, tenderness, tenderness over AC joint. Absent: full ROM, swelling, abrasion, laceration, ecchymosis, deformity, crepidus Upper Arm exam: Present: normal inspection Elbow exam: Present: normal inspection Vascular: Present: normal capillary refill, radial pulse. Absent: vascular compromise, Pallo Right Shoulder Exam: Present: normal inspection, tenderness, tenderness over AC joint. Absent: full ROM, swelling, abrasion, laceration, ecchymosis, deformity, crepidus, dislocation Upper Arm exam: Present: normal inspection Elbow exam: Present: normal inspection Vascular: Present: normal capillary refill, radial pulse. Absent: vascular compromise, Pallo - Back Exam Back exam: Present: normal inspection - Neurological Exam Neurological exam: Present: alert, oriented X3, CN II-XII intact, normal gait - Psychiatric Psychiatric exam: Present: normal affect, normal mood - Skin Skin exam: Present: warm, dry, intact, normal color ED Course Vital Signs 04/15/22 06:44 Temperature 98.1 F Pulse Rate 56 L Respiratory 20 Rate Blood Pressure 118/58 O2 Sat by Pulse 100 Oximetry ED Medical Decision Making - EKG Data Interpretation: no acute changes - Radiology Data Radiology results: report reviewed, image reviewed Chest x-ray: FINDINGS: SUPPORT DEVICES: None. HEART / MEDIASTINUM: No significant abnormality. LUNGS / PLEURA: No significant pulmonary or pleural abnormality. No pneumothorax. ADDITIONAL FINDINGS: No significant additional findings. IMPRESSION: 1. No acute findings. - Medical Decision Making 31-year-old female with a past medical history of asthma presents to the emergency department for evaluation of 2-day history of chest pain when she coughs or moves along with several month history of bilateral shoulder pain. She denies any injury or trauma to shoulders. She states that chest pain is worse when she takes a deep breath and she states pain is 10 out of 10. She denies fever, shortness of breath, nausea, vomiting, dizziness, and diaphoresis. She states that she has not taken any medications for symptoms. Chest x-ray without any acute abnormalities noted. EKG without any acute ischemic changes noted. Patient with chest wall tenderness and tenderness with motion to bilateral shoulders. Patient will be discharged home with Medrol Dosepak, naproxen, and Flexeril to use as directed. She is advised to follow-up with her primary care provider if no improvement or worsening symptoms and return to the emergency department as needed. She verbalizes understanding of and agreement with plan of care. Critical care attestation.: If time is entered above; I have spent that time in minutes in the direct care of this critically ill patient, excluding procedure time. ED Disposition Clinical Impression: Pleuritic chest pain Shoulder pain Qualifiers: Chronicity: acute Laterality: bilateral Qualified Code(s): M25.511 - Pain in right shoulder; M25.512 - Pain in left shoulder Disposition: 01 HOME / SELF CARE / HOMELESS Is pt being admited?: No Does the pt Need Aspirin: No Condition: Stable Instructions: Chest Wall Pain, [id number], Pleurisy, [id number], Shoulder Pain, [id number], Musculoskeletal Pain Additional Instructions: Take medications as prescribed. Follow-up with primary care provider if no improvement or worsening symptoms. Return to the emergency department as needed. Prescriptions: Cyclobenzaprine [Flexeril] 10 mg PO TID PRN #30 tab PRN Reason: Muscle Spasm methylPREDNISolone [Medrol 4MG DOSEPAK (21 tabs)] 4 mg PO DAILY #1 pack Naproxen 500 mg PO BID 7 Days #14 tab Referrals: LALO MCLAUGHLIN MD [Staff Physician] - 3-5 Days Forms: Work/School Release Form(ED) Time of Disposition: 11:30
[2022-04-15 12:18] VITALS: BP 123/88
== END 2022-04-15 12:18 | disposition home or self-care (01) ==
LOC: ED 06:41
DX: R07.9 Chest pain, unspecified (principal); M25.511 Pain in right shoulder; M25.512 Pain in left shoulder; I10 Essential (primary) hypertension; J45.909 Unspecified asthma, uncomplicated
CPT/HCPCS: 71046; 93005; 99283